=== PATIENT | female | born 1990 | race Caucasian/White ===

== ENCOUNTER 2024-09-27 11:08 | Emergency (ER) | payer OTHER, SELFPAY ==
[2024-09-27 11:19] VITALS: BP 118/77; PULSE 80; RESP 18; TEMP 36.8; O2SAT 100; BMI 20.9
--- NOTE | 2024-09-27 11:20 | ED_ITS ---
HPI - General Adult General Chief complaint: Wound/Laceration Stated complaint: Finger lac Time Seen by Provider: 09/27/24 11:27 Source: patient Mode of arrival: ambulatory Limitations: no limitations History of Present Illness ED Provider: Abigail Salazar PA-C HPI narrative: 34 y.o female with no reported medical history presents to the ED with an avulsion to her second digit on the right hand. Patient reports that her toaster started to fall this morning around 06:30AM and when she went to catch it, it caught her finger and took off a chunk of skin. Patient reports the toaster was not hot or plugged in. The patient states she tried to stop the bleeding with pressure and bandages, but the wound has not stopped bleeding since this morning. Patient has an up to date tetanus shot from 2022. She denies any use of blood thinners. Patient denies dizziness, or syncopal event. Onset (ago): hour(s) (6 hours ) Location: right and upper extremity (index finger / second digit) Pain Consistency: constant Relieving factors: none Exacerbating factors: none Associated symptoms: denies other symptoms Treatments prior to arrival: other (bandages ) Related Data Previous Rx's ?Medication ?Instructions ?Recorded amoxicillin 875 mg-potassium 1 tab PO BID 7 days #14 tabs 09/27/24 clavulanate 125 mg tablet Allergies Allergy/AdvReac Type Severity Reaction Status Date / Time Sulfa (Sulfonamide Allergy Unknown RASH Verified 09/27/24 11:37 Antibiotics) [SULFA (SULFONAMIDE ANTIBIOTICS)] Review of Systems 2 Review of Systems: Yes all other systems are reviewed and are negative Constitutional: Constitutional: Reports no additional constitutional complaints, Denies chills, Denies fever(s) and Denies night sweats Eyes: Eyes: Reports no additional eye complaints, Denies blurry vision, Denies change in vision, Denies diplopia, Denies eye discharge, Denies loss of vision and Denies eye pain ENT: Denies dizziness Cardiovascular: Cardiovascular: Reports no additional cardiovascular complaints, Denies chest pain, Denies lightheadedness, Denies Loss of Consciousness and Denies dyspnea Respiratory: Respiratory: Reports no additional respiratory complaints and Denies dyspnea Gastrointestinal: Gastrointestinal: Reports no additional gastrointestinal complaints, Denies abdominal pain, Denies melena, Denies hematochezia, Denies change in bowel habits and Denies change in stool character Genitourinary: Genitourinary: Denies hematuria, Denies urinary frequency, Denies dysuria, Denies urinary incontinence, Denies urinary hesitancy and Denies urinary urgency Musculoskeletal: Musculoskeletal: Reports no additional musculoskeletal complaints, Denies numbness and Denies tingling Integumentary/Breasts: Skin/Breast: Reports wounds (2nd digit avulsion) Neurologic: Denies dizziness, Denies loss of vision, Denies numbness and Denies tingling Psychiatric: Psychiatric: Reports no additional psychiatric complaints Endocrine: Endocrine: Reports no additional endocrine complaints Hematologic/Lymphatic: Hematologic/Lymphatic: Reports no additional hematologic/lymphatic complaints Allergic/Immunologic: Allergic/Immunologic: Reports no additional allergic/immunologic complaints PMFSH Past Medical History Attestation statement: The following information was validated with the patient. Source: old records reviewed and nursing notes reviewed Social History Social History Advance Directives: No Advance Directives Information Provided: Yes Advance Directives on File: No Physical Exam ED Vital Signs: Vital Signs - 24 hr 09/27/24 11:19 09/27/24 12:17 Temperature 98.3 F 98.3 F Pulse Rate 80 80 Respiratory Rate 18 18 Blood Pressure 118/77 118/77 Pulse Oximetry 100 100 Oxygen Delivery Method Room Air Room Air BMI result Body Mass Index 20.9 Const General: cooperative, no acute distress, alert and awake Nutritional Appearance: well nourished Orientation/consciousness: patient oriented x3 HENMT Head: Yes normal to inspection and Yes atraumatic Ears: hearing grossly normal bilaterally and external ears normal General nose exam: Normal external nose present, no nasal discharge noted and no epistaxis Face and sinus: Yes normal facial exam, No abrasion and No laceration Mouth: Normal oral and palatal mucosa present, no drooling and no muffled voice Eyes General: appearance normal, both eyes and all related structures Periorbital: periorbital findings normal Eyelids: Yes eyelids normal Conjunctivae: conjunctivae normal Pupils: Equal, round and reactive pupils present EOM: EOMs intact bilaterally Neck Neck: Yes normal visual inspection, Yes full ROM and Yes no lymphadenopathy Resp Effort & Inspection: normal respiratory effort and able to speak in complete sentences Skin Trauma: abrasion (2nd digit on right hand, bleeding ) Neuro General: patient oriented x3, moves all extremities and CN's II-XI intact bilaterally Cranial nerves: Yes Equal, round and reactive pupils present Cognition (Neuro): normal cognition Extrem Other: General: Yes full ROM and Yes capillary refill normal Hand/finger images: 2 1. abrasion, bleeding Psych Appearance: grossly normal Mental Status: mental status grossly normal Affect: normal affect Attitude: cooperative Thought process: Normal thought process present Thought content: Normal thought content present Insight: Good insight present (Psych) Course Course Course Narrative: This is a rapid medical exam performed by Savannah Shahid NP: Additional HPI, ROS, PE not included below will be deferred to primary provider. Patient is a 34-year-old right hand dominant female presenting with complaint of laceration to palmar surface of left index finger. Got caught on part of the toaster this am, a chunk of skin was torn off. Still bleeding. Unsure last Tdap. Not suturable, minor bleeding, may require Surgicell to control bleeding. Plan: Tdap ordered Medications Administered Discontinued Medications Generic Name Dose Route Start Last Admin Trade Name Freq PRN Reason Stop Dose Admin Amoxicillin/Clavulanate Potassium 875 mg 09/27/24 12:06 09/27/24 12:13 Amoxicillin/Potassium Clav 875 Mg Tablet PO 09/27/24 12:07 875 mg ONCE ONE Administration Diphtheria/Tetanus/Acell Pertussis 0.5 ml 09/27/24 11:23 09/27/24 11:38 Diphth,Pertus(Acell),Tet Adult 0.5 Ml Syringe IM 09/27/24 11:24 Not Given .ONCE ONE Procedures Procedure Narrative Procedure Narrative: Surgicell and non-stick gauze with web roll wrap was placed on the right 2nd finger, without incident. Patient's PMS was intact prior to and after surgicell + bandage application. Medical Decision Making Medical Decision Making MDM Narrative: Patient is a 34 year old assigned female at with no reported medical history presenting to the emergency department today with a right index finger avulsion. Patient's physical exam was as noted in the physical exam portion of this note. I explained my physical exam findings to the patient. I answered all questions asked by the patient. Patient's skin avulsion was not able to have it's edges approximated given the missing skin. I placed surgicell on the area and covered it with a non-stick gauze. Patient's PMS was intact prior to and after surgicell + bandage placement. I stressed the importance of the patient taking her medication as directed (either prescribed or as the over the counter packaging recommends). I stressed the importance of the patient following up with her primary care provider and given the injury, the wound center. I stressed the importance of the patient returning to the emergency department immediately if her symptoms were to worsen or if she were to develop any dizziness, shortness of breath, difficulty breathing, chest pain, blurry vision, loss of vision, nausea, vomiting, abdominal pain, fever, chills, back pain, or any other complaints. Patient verbalized agreement and understanding with this treatment plan and discharge. Differential Diagnosis Differential Diagnoses: The differential diagnosis associated with the presentation includes Skin avulsion Admission/Observation Consideration of admission/observation: Escalation of care including admission/observation considered Patient would have been admitted to the hospital had her clinical presentation warranted hospital admission. Discharge Plan Discharge Clinical Impression: Avulsion of skin Patient Disposition: Home, Self-Care Instructions: Skin Avulsion (ED) Additional Instructions: Do NOT get your bandage wet. Leave your bandage as it is for 72 hours. You may then remove the bandage and SOAK off the surgicell. If you rip it off - you'll rip off the clot with it. If you develop ANY numbness or tingling to the right index finger, remove the bandage immediately. Take your antibiotic as prescribed. Follow up with your primary care provider and given the type of wound / wound shape + depth - the wound center. Return to the emergency department immediately if your symptoms worsen or if you develop any numbness, tingling, dizziness, shortness of breath, difficulty breathing, chest pain, blurry vision, loss of vision, nausea, vomiting, abdominal pain, fever, chills, back pain, or any other complaints. Please see the information below about our Patient Portal. If you are not yet enrolled in the [facility] Patient Portal, you will receive an enrollment email invitation following your visit to any [facility] [place]. You may also self-enroll in the Patient Portal by visiting our website: [email or web address] The following information is required to access the Patient Portal: - Your [facility] Medical Record Number - Your personal home email address (must match what is in your electronic medical record, Registration staff can assist with this) - Name - Date of Capabilities of the Patient Portal: - Message some providers - View upcoming appointments - Access your health summary, medical history, and visit history - View current conditions and allergies - View procedure and lab results - View your medications, including guidelines, side effects, and precautions - Complete pre-appointment questionnaires requested by your provider - Ready summary reports of your office visits and procedures To access the Patient Portal Mobile Yohan, follow these directions: - Search Inktd in the [employer]ohan Store or [employer] Store - Download the Yohan - Search for [facility] - Enter your login/password Prescriptions: New amoxicillin-pot clavulanate 875-125 mg tablet 1 tab PO BID 7 Days Qty: 14 0RF Referrals: Margarita Ortega NP [Primary Care Provider] - [facility] [Provider Group] (Call to establish and follow up with the wound center. ) Stand Alone Forms: Work/School Release Interventions: ED Discharge Assessment Last Done: 09/27/24 12:17 Discharge Date/Time: 09/27/24 12:18 Print Language: Chinese
[2024-09-27] MEDS: Amoxicillin/Potassium Clav 875 MG TABLET PO (12:13)
[2024-09-27 12:17] VITALS: BP 118/77; PULSE 80; RESP 18; TEMP 36.8; O2SAT 100
== END 2024-09-27 12:18 | disposition home or self-care (01) ==
PROVIDERS: Emergency Provider Emergency Medicine; PCP Nurse Practitioner Family
DX: S61.210A Laceration without foreign body of right index finger without damage to nail, initial encounter (principal); W20.8XXA Other cause of strike by thrown, projected or falling object, initial encounter; M79.641 Pain in right hand; Y93.G3 Activity, cooking and baking; Y92.010 Kitchen of single-family (private) house as the place of occurrence of the external cause; Y99.9 Unspecified external cause status
CPT/HCPCS: 12001; 99283